=== PATIENT | male | born 1975 | race Caucasian/White ===

== ENCOUNTER 2019-08-13 22:42 | Emergency (ER) | payer SELFPAY ==
[~2019-08-13] VITALS: Ht 172.7 cm; Wt 81.8 kg
[2019-08-13 22:51] VITALS: BP 123/77; TEMP 98.5
[2019-08-14 00:06] VITALS: PULSE 95
== END 2019-08-14 00:05 | disposition home or self-care (01) ==
LOC: COL.ER 22:42
DX: S61.411A Laceration without foreign body of right hand, initial encounter (principal); W26.0XXA Contact with knife, initial encounter; Y92.009 Unspecified place in unspecified non-institutional (private) residence as the place of occurrence of the external cause